=== PATIENT | female | born 1985 | race African-American/Black ===

== ENCOUNTER 2019-12-25 13:15 | Emergency (ER) | payer MEDICAID ==
[~2019-12-25] VITALS: Ht 165.1 cm; Wt 86.0 kg
[2019-12-25] MEDS ORDERED: IV NORMAL SALINE 1,000ML 1,000 ML IV SCH (13:45)
--- NOTE | 2019-12-25 13:51 | PHYS DOC ---
Past History Past Medical History: Hypertension, Kidney Infection, Migraines Additional Past Medical Histor: insomia Past Surgical History: Hysterectomy, Other Additional Past Surgical Histo: hemorrhoidectomy Alcohol Use: None Adult General Chief Complaint Chief Complaint: ABDOMINAL PAIN HPI HPI Patient is a 34-year-old female who presented to ER today for evaluation of lower abdominal pain that been going on for 3 weeks. Patient was evaluated at another ER in [place] for the same problem, she had lab work, CT scan, pelvic ultrasound, show ovarian cysts. Patient has history of hysterectomy. Patient was referred to see a GI doctor in [facility], but she had not seen the GI doctor yet. Patient continues to have period Of pain, sharp and stabbing in nature, coming in a wave. Patient feels like her previous kidney infection. Patient denies any fever, no diarrhea, no blood in her urine. Patient denies any vaginal discharge or bleeding. Patient came in today to get a second opinion. Review of Systems Review of Systems Constitutional: Denies fever or chills [] Eyes: Denies change in visual acuity, redness, or eye pain [] HENT: Denies nasal congestion or sore throat [] Respiratory: Denies cough or shortness of breath [] Cardiovascular: No additional information not addressed in HPI [] GI: POSITIVE FOR LOWER abdominal pain, NO nausea, vomiting, bloody stools or diarrhea [] : Denies dysuria or hematuria, NO VAGINAL BLEEDING. Musculoskeletal: Denies back pain or joint pain [] Integument: Denies rash or skin lesions [] Neurologic: Denies headache, focal weakness or sensory changes [] Endocrine: Denies polyuria or polydipsia [] All other systems were reviewed and found to be within normal limits, except as documented in this note. Allergies Allergies Allergies Coded Allergies Type Severity Reaction Last Updated Verified No Known Drug Allergies 12/25/19 No Physical Exam Physical Exam Constitutional: Well developed, well nourished, no acute distress, non-toxic appearance. [] HENT: Normocephalic, atraumatic, bilateral external ears normal, oropharynx moist, no oral exudates, nose normal. [] Eyes: PERRLA, EOMI, conjunctiva normal, no discharge. [] Neck: Normal range of motion, no tenderness, supple, no stridor. [] Cardiovascular:Heart rate regular rhythm, no murmur [] Lungs & Thorax: Bilateral breath sounds clear to auscultation [] Abdomen: Bowel sounds normal, soft, There is tenderness to palpation in lower abdominal area, no masses, no pulsatile masses. [] Skin: Warm, dry, no erythema, no rash. [] Back: No tenderness, no CVA tenderness. [] Extremities: No tenderness, no cyanosis, no clubbing, ROM intact, no edema. [] Neurologic: Alert and oriented X 3, normal motor function, normal sensory function, no focal deficits noted. [] Psychologic: Affect normal, judgement normal, mood normal. [] Current Patient Data Vital Signs Vital Signs Date Time Temp Pulse Resp B/P (MAP) Pulse Ox O2 Delivery O2 Flow Rate FiO2 12/25/19 13:27 98.7 105 22 157/108 (124) 99 Room Air EKG EKG [] Radiology/Procedures Radiology/Procedures [][address] [address] IMAGING REPORT Signed PATIENT: ROSALINE HINOJOSA ACCOUNT: [id number] : 1985 LOCATION: ER AGE: 34 SEX: F EXAM STATUS: REG ER ORD. PHYSICIAN: GENESIS SEVILLA DO REASON: lower abdominal pain PROCEDURE: CT ABD PELV W/ IV CONTRST ONLY EXAM: Abdomen and pelvis CT with intravenous contrast. HISTORY: Pain. TECHNIQUE: Computed tomographic images of the abdomen and pelvis were obtained following the administration of intravenous contrast. Multiplanar reformatting was performed. *One or more of the following individualized dose reduction techniques were utilized for this examination: 1. Automated exposure control. 2. Adjustment of the mA and/or kV according to patient size. 3. Use of iterative reconstruction technique. COMPARISON: None. FINDINGS: Evaluation of the lower thorax is unremarkable. No hepatic lesion is seen. The gallbladder, pancreas, spleen and adrenal glands are unremarkable. There is mild renal cortical lobulation which may be developmental or due to scarring. There are few small bilateral renal cysts, the largest of which is seen within the anterior mid zone of the right kidney measuring 2.0 cm. No convincing solid renal lesion is seen. There is no hydronephrosis. There is no appendicitis. There is no bowel obstruction. There is moderate colonic stool. The urinary bladder is unremarkable. The uterus is surgically absent. The adnexal regions are unremarkable. The aorta is normal in caliber. There is no lymphadenopathy. IMPRESSION: 1. No acute abdominal or pelvic finding. 2. Moderate colonic stool. 3. Multiple renal cysts. Electronically signed by: Faustina Silva MD (12/25/2019 3:30 PM) [facility] DICTATED AND SIGNED BY: FAUSTINA SILVA MD DATE: 12/25/19 1530 CC: JESUS FRANK PAC; GENESIS SEVILLA DO ~ Course & Med Decision Making Course & Med Decision Making Pertinent Labs and Imaging studies reviewed. (See chart for details) Patient was examined by this physician, this physician had a N95 mask on. Dragon Disclaimer Dragon Disclaimer This electronic medical record was generated, in whole or in part, using a voice recognition dictation system. Departure Departure: Impression: Primary Impression: Abdominal pain Additional Impression: Constipation Disposition: 01 HOME, SELF-CARE Condition: STABLE Referrals: JESUS FRANK (PCP) FOLLOW UP WITH THE GI DOCTOR SCHEDULED AT [facility]. Patient Instructions: Abdominal Pain, Constipation, Adult Scripts Naproxen Sodium (ANAPROX DS) 550 Mg Tablet 1 TAB PO BID for ABDOMINAL PAIN for 10 Days, #20 TAB 0 Refills Prov: GENESIS SEVILLA DO 12/25/19 Problem Qualifiers GENESIS SEVILLA DO Dec 25, 2019 13:51
[2019-12-25] MEDS ORDERED: KETOROLAC 30 MG/ML VIAL. IVP ONE ×2 (14:00→15:45)
[2019-12-25 14:32] LABS: BASO % 1 % (0-3); EOS # 0.1 x10^3/uL (0.0-0.7); EOS % 2 % (0-3); HEMATOCRIT 35.4 % (36.0-47.0); HEMOGLOBIN 12.1 g/dL (12.0-15.5); LYMPH # 1.9 x10^3/uL (1.0-4.8); LYMPH % 32 % (24-48); MEAN CORPUSCULAR HEMOGLOBIN 31 pg (25-35); MEAN CORPUSCULAR HGB CONC 34 g/dL (31-37); MEAN CORPUSCULAR VOLUME 91 fL (79-100); MONO # 0.3 x10^3/uL (0.0-1.1); MONO % 5 % (0-9); NEUT # 3.5 x10^3uL (1.8-7.7); NEUT % 60 % (31-73); PLATELET COUNT 231 x10^3/uL (140-400); RED BLOOD COUNT 3.88 x10^6/uL (3.50-5.40); RED CELL DISTRIBUTION WIDTH 12.6 % (11.5-14.5); WHITE BLOOD COUNT 5.8 x10^3/uL (4.0-11.0)
[2019-12-25 14:33] LABS: CALCIUM 8.1 mg/dL (8.5-10.1); CREATININE 0.7 mg/dL (0.6-1.0); GFR 115.2; POTASSIUM 3.6 mmol/L (3.5-5.1)
[2019-12-25 14:38] LABS: ALBUMIN 3.9 g/dL (3.4-5.0); ALBUMIN/GLOBULIN RATIO 1.3 (1.0-1.7); TOTAL BILIRUBIN 0.3 mg/dL (0.2-1.0); TOTAL PROTEIN 6.9 g/dL (6.4-8.2)
[2019-12-25 14:40] LABS: BACTERIA,URINE 0 /HPF (0-FEW); BILIRUBIN,URINE NEG (NEG); CLARITY,URINE CLEAR; COLOR,URINE YELLOW; GLUCOSE,URINE NEG (NEG); NITRITE,URINE NEG (NEG); RBC,URINE OCC /HPF (0-2); SQUAMOUS EPITHELIAL CELL,UR MANY /LPF; UROBILINOGEN,URINE 0.2 mg/dL (0.2 mg/dL); WBC,URINE OCC /HPF (0-4)
[2019-12-25] MEDS ORDERED: CONTRAST GIVEN MC PRN (15:00)
[2019-12-25] MEDS ORDERED: IOHEXOL 300 MG/ML 75 ML VIAL. IV ONE (15:00)
--- NOTE | 2019-12-25 15:32 | RAD ---
EXAM: Abdomen and pelvis CT with intravenous contrast. HISTORY: Pain. TECHNIQUE: Computed tomographic images of the abdomen and pelvis were obtained following the administration of intravenous contrast. Multiplanar reformatting was performed. *One or more of the following individualized dose reduction techniques were utilized for this examination: 1. Automated exposure control. 2. Adjustment of the mA and/or kV according to patient size. 3. Use of iterative reconstruction technique. COMPARISON: None. FINDINGS: Evaluation of the lower thorax is unremarkable. No hepatic lesion is seen. The gallbladder, pancreas, spleen and adrenal glands are unremarkable. There is mild renal cortical lobulation which may be developmental or due to scarring. There are few small bilateral renal cysts, the largest of which is seen within the anterior mid zone of the right kidney measuring 2.0 cm. No convincing solid renal lesion is seen. There is no hydronephrosis. There is no appendicitis. There is no bowel obstruction. There is moderate colonic stool. The urinary bladder is unremarkable. The uterus is surgically absent. The adnexal regions are unremarkable. The aorta is normal in caliber. There is no lymphadenopathy. IMPRESSION: 1. No acute abdominal or pelvic finding. 2. Moderate colonic stool. 3. Multiple renal cysts. Electronically signed by: Faustina Cuevas MD (12/25/2019 3:30 PM) [facility]
[2019-12-25] MEDS ORDERED: NAPR-682 PO (16:01)
[2019-12-25 16:26] VITALS: BP 110/68
== END 2019-12-25 16:29 | disposition home or self-care (01) ==
LOC: ER 13:15
DX: K59.00 Constipation, unspecified (principal); N28.1 Cyst of kidney, acquired; I10 Essential (primary) hypertension; G43.909 Migraine, unspecified, not intractable, without status migrainosus; Z90.710 Acquired absence of both cervix and uterus; Z98.890 Other specified postprocedural states
CPT/HCPCS: 36415; 74177; 80053; 81001; 83690; 85025; 96374; 96376; 99285; J1885; Q9967; J7030